=== PATIENT | male | born 1965 | race Two or more races ===

== ENCOUNTER 2018-07-29 12:41 | Emergency (ER) | payer OTHER, MEDICAID ==
[2018-07-29] MEDS: KETOROLAC 60 MG INJ IM (13:21)
== END 2018-07-29 15:21 | disposition home or self-care (01) ==
LOC: FTE 12:41
DX: M54.9 Dorsalgia, unspecified (principal)
CPT/HCPCS: 72100; 96372; 99284-25

== ENCOUNTER 2019-03-08 13:33 | Emergency (ER) | payer OTHER | END 2019-03-08 15:29 | disposition home or self-care (01) | LOC: FTE 15:29 | DX: H92.02 Otalgia, left ear (principal) | CPT/HCPCS: 99283; Z7502 ==